=== PATIENT | female | born 1955 | race Caucasian/White ===

== ENCOUNTER 2017-01-26 18:49 | Inpatient (IN) | payer MEDICARE ==
[~2017-01-26] VITALS: Ht 165.1 cm; Wt 67.1 kg
--- NOTE | 2017-01-26 19:17 | NUR ---
Received report from EDUARDO Uriarte. Assumed care of pt at this time. Pt here for medical clearance prior to MHU admission. Pt resting in position of comfort for self. Security at bedside.
[2017-01-26 20:19] LABS: BASOPHILS # (AUTO) 0.1 K/uL (0.0-8.0); BASOPHILS % (AUTO) 1.6 % (0.0-2.0); EOSINOPHILS % (AUTO) 0.5 % (0.0-7.0); HEMATOCRIT 39.9 % (37-47); LYMPHOCYTES # (AUTO) 1.4 K/UL (0.8-4.8); LYMPHOCYTES % (AUTO) 24.1 % (20.5-51.5); MEAN CORPUSCULAR HEMOGLOBIN 27.8 UUG (27.0-31.0); MEAN CORPUSCULAR HGB CONC 33 g/dL (32.0-37.0); MEAN CORPUSCULAR VOLUME 85.2 FL (81.0-99.0); MONOCYTES # (AUTO) 0.3 K/UL (0.1-1.30); MONOCYTES % (AUTO) 5.2 % (0.0-11.0); NEUTROPHILS # (AUTO) 4.1 K/UL (1.8-8.9); NEUTROPHILS % (AUTO) 68.6 % (38.5-71.5); PLATELET COUNT (AUTO) 286 K/UL (150-450); RED BLOOD CELL COUNT(AUTO) 4.68 MIL/UL (4.2-5.4); WHITE BLOOD COUNT (AUTO) 5.9 K/UL (4.0-11.2)
[2017-01-26 20:24] LABS: ETHANOL < 3 MG/DL (0-0)
[2017-01-26 20:26] LABS: CARBON DIOXIDE 25 mmol/L (21-32); CHLORIDE 106 mmol/L (98-107); CREATININE 1.2 mg/dL (0.6-1.3); GLUCOSE 96 mg/dL (74-106); POTASSIUM 4.1 mmol/L (3.5-5.1); UREA NITROGEN, BLOOD 19 mg/dL (7-18)
[2017-01-26 20:32] LABS: ACETAMINOPHEN < 2.0 ug/mL (10-30); ALANINE AMINOTRANSFERASE 25 U/L (14-59); ALKALINE PHOSPHATASE 55 U/L (50-136); ASPARTATE AMINOTRANSFERASE 23 U/L (15-37); BILIRUBIN,DIRECT 0.1 mg/dL (0.0-0.2); BILIRUBIN,TOTAL 0.7 mg/dL (0.2-1.0); TOTAL PROTEIN, SERUM 7.2 g/dL (6.4-8.2)
--- NOTE | 2017-01-26 21:18 | NUR ---
Report given to EDUARDO Ruiz. Preparing to transfer pt to the floor.
[2017-01-26 21:50] VITALS: BP 157/93
[2017-01-26] MEDS ORDERED: MAGNESIUM HYDROXIDE 30 ML LIQUID UDC PO PRN (22:15)
[2017-01-26] MEDS ORDERED: MAG HYDROX/AL HYDROX/SIMETH 30 ML LIQUID UDC PO PRN (22:15)
--- NOTE | 2017-01-26 22:30 | NUR ---
received to care, at 2144, from the emergency room, on a 72 hour hold, for danger to self/danger to others. according to the chart, she lives at home, with a history of dementia and anxiety. her daughter pily, is her caregiver. she reported an increase in agitation, pacing, and aggressive tendencies. her daughter reported a recent episode where she would not stop pacing for hours, and did not recognize her, and was yelling for help. she also has recently attempted to awol from home, causing her family to place a deadbolt on the front door of her home. upon arrival on the unit, she was pleasant but disorganized. unable to provide much history. was malodorous, but allowed staff to assist her with a shower. as of 2229, she is in the activity room, watching tv, with peers. no distress noted. will continue to monitor closely.
[2017-01-26] MEDS: TEMAZEPAM 7.5 MG CAPSULE PO PRN (23:19)
--- NOTE | 2017-01-26 23:19 | NUR ---
remains awake. PRN restoril, given for insomnia.
[2017-01-26] MEDS ORDERED: TEMAZEPAM 7.5 MG CAPSULE ONE (23:30)
--- NOTE | 2017-01-26 23:39 | NUR ---
pt is now pacing the hallway, with an unsteady gait, difficult to redirect, placed in demi chair for safety, ayt nurses station, for closer monitoring.
--- NOTE | 2017-01-27 00:20 | NUR ---
APPEARS TO BE ASLEEP. NO DISTRESS NOTED.
--- NOTE | 2017-01-27 06:00 | NUR ---
slept 5 hours total.
[2017-01-27 07:30] VITALS: BP 119/77
[2017-01-27 16:32] VITALS: BP 101/55
[2017-01-27] MEDS: LORAZEPAM 0.5 MG TABLET PO PRN (17:02)
[2017-01-27 20:11] VITALS: BP 121/77
[2017-01-27] MEDS: RIVASTIGMINE TARTRATE 1.5 MG CAPSULE PO SCH (21:32)
[2017-01-27] MEDS: DIVALPROEX 250 MG TABLET.DR PO SCH (21:32)
[2017-01-27] MEDS: ATORVASTATIN 20 MG TABLET PO SCH (21:33)
[2017-01-27] MEDS ORDERED: DIVALPROEX 250 MG TABLET.DR PO ONE (21:39)
[2017-01-27] MEDS ORDERED: RIVASTIGMINE TARTRATE 1.5 MG CAPSULE ONE (21:40)
--- NOTE | 2017-01-27 22:00 | NUR ---
received to care, up in demi chair, pleasant upon approach. pt remains confused, oriented to name only. gait continues to be unsteady, but was able to ambulate to the bathroom, with staff assist, was seen by Dr Stanton this evening, and started on depakote and exelon. as of 0, she remains awake, and slightly restless. up in demi chair at nurses station, for close monitoring. no distress noted. will continue to monitor closely.
[2017-01-27] MEDS: TEMAZEPAM 7.5 MG CAPSULE PO PRN (23:00)
--- NOTE | 2017-01-27 23:00 | NUR ---
remains awake. PRN restoril, given for insomnia.
--- NOTE | 2017-01-27 23:30 | NUR ---
appears to be asleep. no distress noted. will continue to monitor closely.
--- NOTE | 2017-01-28 06:00 | NUR ---
slept 6.0 hours total. is now awake. assisted with am care, and shower. currently up in demi chair, for safety. no distress noted. will continue to monitor closely.
[2017-01-28 07:30] VITALS: BP 158/84
[2017-01-28] MEDS: LORAZEPAM 0.5 MG TABLET PO PRN ×3 (08:22→20:30)
[2017-01-28] MEDS: RIVASTIGMINE TARTRATE 1.5 MG CAPSULE PO SCH ×2 (08:33→21:32)
[2017-01-28] MEDS: DIVALPROEX 250 MG TABLET.DR PO SCH ×3 (08:33→16:30)
[2017-01-28 16:42] VITALS: BP 132/74
--- NOTE | 2017-01-28 17:45 | NUR ---
GPS: Nursing Note: Thought Disorder: Patient is awake and responding to her name, disoriented, impaired judgment, confused, wandering around the unit aimlessly, needs assistance with ADL's, not able to find her room by self, unkempt appearance, redirected and reoriented during shift, believes that she was in a beauty salon, "I need to go home... I am done with my hair... I do not like this beauty salon..", unable to formulate a plan for self care, continue with treatment plan.
[2017-01-28 19:48] VITALS: BP 123/79
[2017-01-28] MEDS: ATORVASTATIN 20 MG TABLET PO SCH (21:32)
--- NOTE | 2017-01-28 22:00 | NUR ---
received to care, appearing confused, wandering about the unit, difficult to redirect, or orient to reality. PRN ativan was given at 2030, and she was placed in the demi chair, for safety. bedtime medications were given at 2129, and, as of 2199, she remains awake, and restless. currently talking to self. monitored closely, for safety. no distress noted. will continue to monitor closely.
[2017-01-28] MEDS: ACETAMINOPHEN 325 MG TABLET PO PRN (23:00)
[2017-01-28] MEDS: TEMAZEPAM 7.5 MG CAPSULE PO PRN (23:00)
--- NOTE | 2017-01-28 23:00 | NUR ---
remains awake, and restless. PRN restoril was given, at this time.
[2017-01-29] MEDS: LORAZEPAM 0.5 MG TABLET PO PRN ×4 (01:08→19:20)
--- NOTE | 2017-01-29 01:08 | NUR ---
remains awake, and restless. PRN ativan was given at this time.
--- NOTE | 2017-01-29 06:00 | NUR ---
slept 1.0 hours, total. assisted with am care, and toileting. currently up un demi chair. no distress noted.
[2017-01-29 07:30] VITALS: BP 129/80
[2017-01-29] MEDS: DIVALPROEX 250 MG TABLET.DR PO SCH ×3 (08:26→16:51)
[2017-01-29] MEDS: RIVASTIGMINE TARTRATE 1.5 MG CAPSULE PO SCH ×2 (08:26→21:02)
--- NOTE | 2017-01-29 15:22 | NUR ---
Initial DC Plan: Patient currently resides with her daughter Nidhi [[address] [place] [address]; [phone]]. SHIREEN spoke with Nidhi, who stated she would like for pt to return home upon discharge. SHIREEN will follow up with MD, patient, and patient's family to discuss most appropriate discharge plans. SW will form a safe and proper discharge.
[2017-01-29 16:42] VITALS: BP 109/77
[2017-01-29] MEDS: ATORVASTATIN 20 MG TABLET PO SCH (21:02)
[2017-01-29] MEDS: TEMAZEPAM 7.5 MG CAPSULE PO PRN (21:02)
[2017-01-29 21:10] VITALS: BP 127/89
--- NOTE | 2017-01-30 06:42 | NUR ---
RECEIVED Pt WANDERING THE HALLWAY AND INTO OTHER PATIENT'S ROOMS. A+Ox1, Pt IS VERY CONFUSED, DISORIENTED, DISORGANIZED, AND FORGETFUL. Pt HAS POOR IMPULSE CONTROL AND IMPAIRED JUDGEMENT. Pt IS UNCOOPERATIVE WITH STAFF DIRECTION. REQUIRES FREQUENT REDIRECTION. ATIVAN 0.5mg ADMINISTERED WITH MINIMAL EFFECT. Pt HAD AN EPISODE OF PHYSICAL AGGRESSION TOWARD STAFF WHEN Pt WAS SHOWN TO HER ROOM. Pt REFUSED TO STAY IN BED FOR SAFETY, Pt WAS MEDICATED, UNSTEADY, AND A FALL RISK. Pt WAS PLACED IN ARMEN CHAIR AT THIS TIME, BUT REMAINED ANXIOUS AND RESTLESS, ATTEMPTING TO SLIDE OUT OF THE CHAIR SEVERAL TIMES. RESTORIL 7.5mg ADMINISTERED WITH MODERATE EFFECT, BUT Pt REMAINED SOMEWHAT RESTLESS. RN STAYED WITH Pt UNTIL SHE EVENTUALLY FELL ASLEEP AND WAS PUT INTO BED.
--- NOTE | 2017-01-30 06:55 | NUR ---
SLEPT 4 HOURS
[2017-01-30 07:30] VITALS: BP 105/71
[2017-01-30] MEDS: RIVASTIGMINE TARTRATE 1.5 MG CAPSULE PO SCH ×2 (08:36→20:56)
[2017-01-30] MEDS: DIVALPROEX 250 MG TABLET.DR PO SCH ×3 (08:36→16:32)
[2017-01-30] MEDS: LORAZEPAM 0.5 MG TABLET PO PRN ×3 (08:36→20:55)
[2017-01-30 15:56] VITALS: BP 107/67
[2017-01-30] MEDS: ACETAMINOPHEN 325 MG TABLET PO PRN (16:33)
[2017-01-30 19:52] VITALS: BP 133/84
[2017-01-30] MEDS: ATORVASTATIN 20 MG TABLET PO SCH (20:55)
[2017-01-30] MEDS: TEMAZEPAM 7.5 MG CAPSULE PO PRN (22:43)
[2017-01-31 07:30] VITALS: BP 124/73
[2017-01-31] MEDS: DIVALPROEX 250 MG TABLET.DR PO SCH ×3 (08:36→16:21)
[2017-01-31] MEDS: RIVASTIGMINE TARTRATE 1.5 MG CAPSULE PO SCH ×2 (08:36→20:29)
[2017-01-31] MEDS: LORAZEPAM 0.5 MG TABLET PO PRN ×2 (08:36→12:06)
[2017-01-31 08:42] LABS: BASOPHILS % (AUTO) 0.8 % (0.0-2.0); EOSINOPHILS # (AUTO) 0.1 K/uL (0.0-0.7); EOSINOPHILS % (AUTO) 1.1 % (0.0-7.0); LYMPHOCYTES % (AUTO) 42.1 % (20.5-51.5); MEAN CORPUSCULAR HEMOGLOBIN 28.3 uug (24.7-32.8); MEAN CORPUSCULAR HGB CONC 33 g/dL (32.3-35.6); MEAN CORPUSCULAR VOLUME 85.2 fL (75.5-95.3); MONOCYTES # (AUTO) 0.3 K/uL (2.0-10.0); MONOCYTES % (AUTO) 6.9 % (0.0-11.0); NEUTROPHILS # (AUTO) 2.3 K/uL (1.8-8.9); NEUTROPHILS % (AUTO) 49.1 % (38.5-71.5); PLATELET COUNT (AUTO) 266 K/uL (179-408); RED BLOOD CELL COUNT(AUTO) 4.23 MIL/uL (3.63-4.92); WHITE BLOOD COUNT (AUTO) 4.8 K/uL (3.8-11.8)
[2017-01-31 09:31] LABS: BILIRUBIN,TOTAL 0.6 mg/dL (0.2-1.0); CREATININE 1.1 mg/dL (0.6-1.3); MAGNESIUM 2.1 mg/dL (1.8-2.4); PHOSPHOROUS 4.1 mg/dL (2.5-4.9); POTASSIUM 4.4 mmol/L (3.5-5.1); TOTAL PROTEIN, SERUM 5.8 g/dL (6.4-8.2)
[2017-01-31 11:14] LABS: THYROID STIMULATING HORMONE 1.984 mIU/mL (0.358-3.740)
[2017-01-31] MEDS: DOCUSATE SODIUM 100 MG CAPSULE PO SCH ×2 (11:20→20:30)
[2017-01-31 16:00] VITALS: BP 102/72
[2017-01-31] MEDS: ACETAMINOPHEN 325 MG TABLET PO PRN (16:21)
[2017-01-31 20:16] VITALS: BP 132/77
[2017-01-31] MEDS: ATORVASTATIN 20 MG TABLET PO SCH (20:30)
[2017-01-31] MEDS: TEMAZEPAM 7.5 MG CAPSULE PO PRN (22:11)
--- NOTE | 2017-01-31 23:38 | NUR ---
PATIENT RECEIVED WANDERING THE HALLWAY AND INTO OTHER PATIENT'S ROOMS. PATIENT ALERT/ORIENTED X1. PATIENT CONFUSED, DISORGANIZED, DISORIENTED. POOR JUDGEMENT, POOR IMPULSE CONTROL. PATIENT COMPLAINT WITH MEDICATION. NO AGGRESSIVE OR COMBATIVE BEHAVIOR NOTED. NO APPARENT DISTRESS NOTED WILL CONTINUE TO MONITOR. PATIENT COMPLAINT WITH RESTORIL 7.5 MG, IN BED, BED IN LOWEST POSITION, BED LOCKED, AND BED ALARM ON WHILE IN BED.
[2017-02-01 07:30] VITALS: BP 132/82
[2017-02-01] MEDS: DOCUSATE SODIUM 100 MG CAPSULE PO SCH ×2 (08:39→20:25)
[2017-02-01] MEDS: RIVASTIGMINE TARTRATE 1.5 MG CAPSULE PO SCH ×2 (08:39→20:25)
[2017-02-01] MEDS: DIVALPROEX 250 MG TABLET.DR PO SCH ×3 (08:39→16:49)
--- NOTE | 2017-02-01 10:21 | NUR ---
Gps Nursing/Editor Map- Wandering around,goes room to room, needed constant redirections ,unable to find her own room. Confused and incoherent speech. Had been given constant redirections. Encouraged to initiate simple tasks to assist self. Compliant w/ he routine medications with minimal prompting.Did not initiate to feed self this am.Continue to monitor safety.
[2017-02-01] MEDS ORDERED: MAGNESIUM HYDROXIDE 30 ML LIQUID UDC PO ONE (10:30)
--- NOTE | 2017-02-01 10:50 | NUR ---
[employer]: SHIREEN submitted [employer] [facility] Report to [facility] on 02/01.
[2017-02-01] MEDS: ACETAMINOPHEN 325 MG TABLET PO PRN (12:50)
[2017-02-01 15:46] VITALS: BP 140/86
[2017-02-01] MEDS: ATORVASTATIN 20 MG TABLET PO SCH (20:25)
[2017-02-01] MEDS: TEMAZEPAM 7.5 MG CAPSULE PO PRN (21:44)
[2017-02-01 21:51] VITALS: BP 128/84
[2017-02-02 07:30] VITALS: BP 124/78
--- NOTE | 2017-02-02 08:19 | NUR ---
DC Note: Patient will be discharged home with family [[address] [place] [address]] via private transportation at 6pm. SW spoke with patient's daughter Nidhi [[phone]] who stated she will be picking up the patient today. Per patient's daughter, she has two caregivers at home. Patient's daughter is aware and agreeable to discharge plans. Patient will follow up with her tipple oiler Dr. Cerda [[address] [place] [address]; ]. Patient was provided a list of referrals for outpatient psychiatrists including Dr. Ford [[phone]], Dr. Hicks [[phone]], and Dr. Saunders [[phone]].
[2017-02-02] MEDS: RIVASTIGMINE TARTRATE 1.5 MG CAPSULE PO SCH (09:44)
[2017-02-02] MEDS: DOCUSATE SODIUM 100 MG CAPSULE PO SCH (09:45)
[2017-02-02] MEDS: DIVALPROEX 250 MG TABLET.DR PO SCH ×3 (09:45→17:30)
[2017-02-02 16:09] VITALS: BP 122/74
--- NOTE | 2017-02-02 19:04 | NUR ---
vincent d/cd home with daughter with all belongings in no acute distress pt remains confused very with drawn aND FLAT , NO SELF DISCLOSEURE . nO C/O PAIN OR DISCOMFORT THIS SHIFT . D/C INSTRUCTIONS GIVEN AND UNDERSTOOD BY PATIENTS DAUGHTER
== END 2017-02-02 18:50 | disposition home or self-care (01) | DRG 885 ==
LOC: ER 18:49 → GPS 21:45
PROVIDERS: ADMIT Psychiatry & Neurology Psychiatry; ATTEND Internal Medicine
DX: F39 Unspecified mood [affective] disorder (principal); E44.0 Moderate protein-calorie malnutrition; F03.91 Unspecified dementia, unspecified severity, with behavioral disturbance; F23 Brief psychotic disorder; F41.9 Anxiety disorder, unspecified; Z91.83 Wandering in diseases classified elsewhere; Z68.24 Body mass index [BMI] 24.0-24.9, adult; E78.5 Hyperlipidemia, unspecified; K59.00 Constipation, unspecified
CPT/HCPCS: 36415; 83735; 84100; 84443; 85025; 97116; 97530; A4663; G0480; G0480-TC; J3490